=== PATIENT | female | born 1995 | race Caucasian/White ===

== ENCOUNTER 2025-05-25 19:56 | Inpatient (IN) | payer BC ==
[~2025-05-25] VITALS: Ht 160 cm; Wt 122.5 kg
[2025-05-25 20:01] VITALS: O2SAT 100
[2025-05-25] MEDS: MORPHINE SULFATE 4 MG/ML INJ (FOR IV/IM USE) IM ONE (21:04)
[2025-05-25] MEDS: LIDOCAINE 5% PATCH TOP SCH (21:05)
[2025-05-25 21:09] LABS: BASOPHILS % 0.4 % (0.0-2.0); EOSINOPHILS % 0.5 % (0.0-5.0); HEMATOCRIT. 43.3 % (36.0-48.0); HEMOGLOBIN. 14.5 g/dL (12.0-16.0); LYMPHOCYTES % 31.6 % (20.0-50.0); MEAN PLATELET VOLUME 7.8 fl (7.4-10.4); MONOCYTES % 6.0 % (2.0-8.0); NEUTROPHILS % 61.5 % (40.0-76.0); PLATELET 361 x1000/uL (130-400); RED BLOOD CELL COUNT 4.83 mill/uL (4.2-5.4); RED CELL DISTRIBUTION WIDTH 12.9 % (11.6-14.6)
[2025-05-25 21:21] LABS: HCG SCREEN NEGATIVE
[2025-05-25 21:23] LABS: CREATININE 0.9 mg/dL (0.6-1.0); UREA NITROGEN BLOOD 7 mg/dL (9-23)
[2025-05-26 02:30] VITALS: BP 112/78; PULSE 83; RESP 18; TEMP 36.7516
[2025-05-26] MEDS ORDERED: NALOXONE HCL 0.4MG/ML VIAL IV PRN (03:00)
[2025-05-26] MEDS ORDERED: ONDANSETRON HCL 4MG/2ML INJ IV PRN (03:00)
[2025-05-26] MEDS ORDERED: IPRATROPIUM/ALBUTEROL 0.5-3(2.5)MG/3ML NEB HHN PRN (03:00)
[2025-05-26] MEDS: HYDROCODONE/ACETAMINOPHEN 7.5/325MG TABLET PO PRN (03:06)
[2025-05-26 08:00] VITALS: BP 123/78; PULSE 99; RESP 19; TEMP 36.8; O2SAT 98
[2025-05-26 14:00] VITALS: BP 130/81; PULSE 99; RESP 18; TEMP 36.5; O2SAT 95
[2025-05-26 16:00] VITALS: BP 144/84; PULSE 87; RESP 18; TEMP 36.6; O2SAT 99
[2025-05-26 20:00] VITALS: BP 132/84; PULSE 97; RESP 20; TEMP 36.8; O2SAT 95
[2025-05-27] VITALS: BP 124/78; PULSE 93; RESP 20; TEMP 36.2; O2SAT 95
[2025-05-27] MEDS: GADOTERATE MEGLUMINE 5 MMOL/10 ML VIAL IV ONE (07:54)
[2025-05-27 08:00] VITALS: BP 111/68; PULSE 96; RESP 18; TEMP 37.1; O2SAT 96
[2025-05-27 12:00] VITALS: BP 110/70; PULSE 91; RESP 17; TEMP 36.1; O2SAT 96
[2025-05-27 16:10] VITALS: BP 112/71; PULSE 95; RESP 18; TEMP 36.8; O2SAT 98
[2025-05-27 20:00] VITALS: BP 105/64; PULSE 89; RESP 18; TEMP 36.8; O2SAT 97
[2025-05-28] VITALS: BP 111/72; PULSE 95; RESP 19; TEMP 37; O2SAT 98
[2025-05-28 04:00] VITALS: BP 115/76; PULSE 96; RESP 19; TEMP 36.9; O2SAT 98
[2025-05-28] MEDS ORDERED: HYDR-4001 PO (10:16)
[2025-05-28 16:00] VITALS: BP 125/58; PULSE 91; RESP 18; TEMP 36.7; O2SAT 97
[2025-05-28 19:59] VITALS: BP 104/62; PULSE 94; RESP 18; TEMP 36.8; O2SAT 98
[2025-05-29] VITALS: BP 108/72; PULSE 95; RESP 19; TEMP 36.8; O2SAT 98
[2025-05-29 03:43] VITALS: BP 110/66; PULSE 96; RESP 18; TEMP 36.8; O2SAT 97
[2025-05-29 08:00] VITALS: BP 111/66; PULSE 82; RESP 16; TEMP 36.7; O2SAT 97
[2025-05-29 11:02] VITALS: BP 111/66; PULSE 82; RESP 16; TEMP 98
[2025-05-29 13:15] VITALS: BP 106/62; PULSE 83; RESP 16; TEMP 98.5
[2025-05-29] MEDS ORDERED: HYDR-4001 PO ×2 (17:02→17:04)
== END 2025-05-29 13:57 | disposition home or self-care (01) | DRG 552 ==
LOC: ER 19:56 → EDBEDREQTM 05-26 01:12 → EDBEDREQ 05-26 01:12 → ENRESERV 05-26 01:30 → 6EST 05-26 01:53
PROVIDERS: ADMIT Student in an Organized Health Care Education/Training Program; ATTEND Student in an Organized Health Care Education/Training Program
DX: M54.89 Other dorsalgia (principal); M25.551 Pain in right hip
CPT/HCPCS: 36415; 72156; 72157; 72158; 73502; 80048; 84703; 85025; 93005; 97116; 97162; 97166; 97535; 99285; A4606; A9577; J2270